=== PATIENT | male | born 1955 | race Caucasian/White ===

== ENCOUNTER 2024-09-01 07:37 | Inpatient (IN) ==
[2024-08-21 10:32] LABS: Basophils # (Auto) 0.03 K/mcL (0.00-0.30); Basophils % (Auto) 0.4 % (0.0-2.0); Eosinophils # (Auto) 0.06 K/mcL (0.00-0.70); Eosinophils % (Auto) 0.7 % (0.0-7.0); Hematocrit 49.1 % (40.1-51.0); Hemoglobin 15.6 g/dL (13.7-17.5); Lymphocytes # (Auto) 1.65 K/mcL (1.50-4.80); Mean Cell Volume 86.3 fL (80.0-100.0); Mean Corpuscular HGB Conc 31.8 g/dL (31.0-36.0); Mean Platelet Volume 8.8 fL (8.8-12.5); Monocytes # (Auto) 0.67 K/mcL (0.10-0.90); Monocytes % (Auto) 8.1 % (1.0-12.0); Neutrophils % (Auto) 70.6 % (38.0-78.0); Platelet Count 295 K/mcL (140-440); RBC 5.69 M/mcL (4.63-6.08); WBC 8.2 K/mcL (4.5-11.0)
[2024-08-21 10:48] LABS: INR 0.9 (0.9-1.1)
[2024-08-21 10:50] LABS: ALT/SGPT 46 U/L (<40); AST/SGOT 29 U/L (<40); Albumin 4.6 gm/dL (3.2-5.2); Albumin/Globulin Ratio 1.5 (1.0-2.3); Alkaline Phosphatase 80 U/L (39-117); Bilirubin,Total 0.6 mg/dL (0.1-1.0); Blood Urea Nitrogen 21 mg/dL (8-23); Calcium 10.5 mg/dL (8.6-10.4); Carbon Dioxide 27 mmol/L (22-30); Chloride 104 mmol/L (96-108); Globulin 3.1 gm/dL (2.2-3.7); Glomerular Filtration Rate 68; Glucose 108 mg/dL (70-105); Potassium 4.5 mmol/L (3.3-5.1); Sodium 143 mmol/L (133-145)
[2024-08-21 12:17] LABS: Estimated Average Glucose(eAG) 137 mg/dL; Hemoglobin A1C 6.4 % Hgb (4.0-6.0)
[2024-08-21 12:32] LABS: Appearance,Urine CLEAR (Clear); Bilirubin,Urine Negative (Negative); Color,Urine YELLOW; Glucose,Urine (UA) Negative (Negative); Ketones,Urine Negative (Negative); Leukocyte Esterase,Urine Negative /uL (Negative); Nitrate,Urine Negative (Negative); Protein,Urine Negative (Negative); Urine Blood Negative (Negative); Urobilinogen,Urine Negative
[2024-09-01] MEDS: ACETAMINOPHEN 500 MG TABLET PO SCH (07:56)
[2024-09-01] MEDS: PREGABALIN 75 MG CAPSULE PO SCH (07:56)
[2024-09-01] MEDS: CELECOXIB 200 MG CAPSULE PO SCH (07:56)
[2024-09-01] MEDS: oxyCODONE 10 MG TAB.ER.12H PO SCH (07:56)
[2024-09-01] MEDS ORDERED: LIDOCAINE 2% PF 5 ML VIAL ONE (11:46)
[2024-09-01] MEDS ORDERED: ONDANSETRON 4 MG/2 ML VIAL ONE (11:46)
[2024-09-01] MEDS ORDERED: DEXAMETHASONE 10 MG/ML VIAL ONE (11:46)
[2024-09-01] MEDS ORDERED: PROPOFOL 200 MG/20 ML VIAL IV ONE (11:47)
[2024-09-01] MEDS ORDERED: KETAMINE 50 MG/ML ML ONE (11:47)
[2024-09-01] MEDS: ceFAZolin 2 GM in DEXTROSE 5% IN WATER 50 ML IV SCH (12:19)
[2024-09-01] MEDS ORDERED: fentaNYL 100 MCG/2 ML VIAL ONE (12:28)
[2024-09-01] MEDS ORDERED: GLYCOPYRROLATE 0.2 MG/ML VIAL IV ONE (12:37)
[2024-09-01] MEDS: 0.9 % SODIUM CHLORIDE 9 ML, KETOROLAC 30 MG, ROPIVACAINE HCL/PF 49.5 ML, EPINEPHrine 0.... IJ SCH (13:15)
[2024-09-01] MEDS ORDERED: PHENYLephrine 1 MG/10 ML SYRINGE (ANEST) ONE (13:16)
[2024-09-01] MEDS ORDERED: ROPIVACAINE HCL/PF 30 ML VIAL IJ ONE (13:16)
[2024-09-01] MEDS ORDERED: IPRATROPIUM/ALBUTEROL 3 ML AMPUL.NEB NEB PRN (13:24)
[2024-09-01] MEDS ORDERED: ONDANSETRON 4 MG/2 ML VIAL IV PRN ×2 (13:24→13:27)
[2024-09-01] MEDS ORDERED: fentaNYL 100 MCG/2 ML VIAL IV PRN (13:24)
[2024-09-01] MEDS ORDERED: HYDROcodone/APAP 10/325MG TABLET PO PRN (13:27)
[2024-09-01] MEDS ORDERED: HYDROmorphone 1 MG/ML SYRINGE IV PRN (13:27)
[2024-09-01] MEDS ORDERED: MAGNESIUM HYDROXIDE 30 ML ORAL.SUSP PO PRN (13:27)
[2024-09-01] MEDS ORDERED: BENZOCAINE/MENTHOL 1 LOZENGE PO PRN (13:27)
[2024-09-01] MEDS ORDERED: TEMAZEPAM 15 MG CAPSULE PO PRN (13:27)
[2024-09-01] MEDS ORDERED: ALBUTEROL SULFATE 60 PUFF INHALER INH PRN (13:30)
[2024-09-01] MEDS ORDERED: ACETAMINOPHEN 325 MG TABLET PO PRN (14:00)
[2024-09-01] MEDS: TRANEXAMIC ACID 1,000 MG/10 ML VIAL IV ONE (14:16)
[2024-09-01] MEDS: KETOROLAC 15 MG/ML VIAL IV PRN (14:16)
[2024-09-01] MEDS: 0.9 % SODIUM CHLORIDE 10 ML SYRINGE IV SCH (16:18)
[2024-09-01] MEDS: 0.9 % SODIUM CHLORIDE 1,000 ML IV SCH (16:29)
[2024-09-01] MEDS: oxyCODONE IR 5 MG TABLET PO PRN (18:48)
[2024-09-01] MEDS: ceFAZolin 1 GM VIAL IV SCH (19:59)
[2024-09-01] MEDS: OMEPRAZOLE 20 MG CAPSULE PO SCH (20:10)
[2024-09-01] MEDS: DOCUSATE SODIUM 100 MG CAPSULE PO SCH (20:10)
[2024-09-01] MEDS: traZODone HCL 100 MG TABLET PO SCH (20:10)
[2024-09-01] MEDS: ASPIRIN 81 MG TAB.CHEW CHEWED SCH (20:10)
[2024-09-01] MEDS: PRAZOSIN 1 MG CAPSULE PO SCH (20:10)
[2024-09-02] MEDS: hydrOXYzine 25 MG TABLET PO SCH (08:14)
[2024-09-02] MEDS: GABAPENTIN 300 MG CAPSULE PO SCH (08:14)
[2024-09-02] MEDS: LOSARTAN 50 MG TABLET PO SCH (08:16)
[2024-09-02] MEDS: HYDROCHLOROTHIAZIDE 12.5 MG CAPSULE PO SCH (08:16)
[2024-09-02] MEDS: CARBOXYMETHYLCELLULOSE SODIUM 1 EACH DROPER.GEL OP SCH (08:17)
[2024-09-02] MEDS: FLUTICASONE/SALMETEROL 50/100 INHALER #14 INH SCH (08:17)
[2024-09-02 08:18] VITALS: TEMP 98.2; O2SAT 91
== END 2024-09-02 11:29 | disposition hospice, inpatient (51) | DRG 489 ==
LOC: MEDSUR 07:37
PROVIDERS: ADMIT Orthopaedic Surgery; ATTEND Orthopaedic Surgery